=== PATIENT | male | born 1970 | race African-American/Black ===

== ENCOUNTER 2019-07-06 09:47 | Emergency (ER) | payer MEDICAID ==
[~2019-07-06] VITALS: Ht 180.3 cm; Wt 86.0 kg
[2019-07-06 11:06] LABS: BASOPHILS % 0.9 % (0.0-2.0); CHLORIDE 110 mEq/L (98-107); EOSINOPHILS % 0.3 % (0.0-5.0); HEMATOCRIT. 44.7 % (42.0-52.0); HEMOGLOBIN. 15.7 g/dL (14.0-18.0); LYMPHOCYTES % 20.4 % (20.0-50.0); MEAN CORPUSCULAR HEMOGLOBIN 30.1 pg (28.0-32.0); MEAN CORPUSCULAR VOLUME 85.8 fL (80.0-94.0); MEAN PLATELET VOLUME 8.7 fl (7.4-10.4); MONOCYTES % 7.4 % (2.0-8.0); PLATELET 270 x1000/uL (130-400); RED BLOOD CELL COUNT 5.21 mill/uL (4.7-6.1); RED CELL DISTRIBUTION WIDTH 13.7 % (11.6-14.6)
[2019-07-06 12:55] VITALS: BP 155/101
== END 2019-07-06 12:55 | disposition home or self-care (01) ==
LOC: ER 09:47
DX: R53.1 Weakness (principal); I10 Essential (primary) hypertension
CPT/HCPCS: 36415; 71045; 80053; 85025; 99284

== ENCOUNTER 2021-01-19 21:58 | Emergency (ER) | payer MEDICAID ==
[~2021-01-19] VITALS: Ht 172.7 cm; Wt 82.0 kg
[~2021-01-19 21:58] MED LIST: ACET650T37 MT; HYDR-4001 MT; LORA-249 MT; PANT40TA51 MT
[2021-01-19 22:07] VITALS: BP 130/86
[2021-01-20] MEDS ORDERED: VISCOUS LIDOCAINE 2% 15 ML UDC PO STA (02:11)
[2021-01-20] MEDS ORDERED: MAGNESIUM/ALUMINUM HYDROXIDE/SIMETHICONE 30ML UDC PO STA (02:11)
[2021-01-20 03:08] LABS: CLARITY URINE CLOUDY (CLEAR); COLOR URINE DARK YELLOW (YELLOW); KETONES URINE TRACE (NEGATIVE); LEUKOCYTE ESTERASE URINE TRACE (NEGATIVE); NITRITE URINE NEGATIVE (NEGATIVE); OCCULT BLOOD URINE TRACE (NEGATIVE); PH URINE 5.5 (4.5-8.0); PROTEIN URINE 3+ (NEGATIVE); SPECIFIC GRAVITY URINE 1.027 (1.005-1.030)
[2021-01-20 03:17] LABS: *AMPHETAMINES SCREEN URINE NEGATIVE (NEGATIVE); *BARBITURATES SCREEN URINE NEGATIVE (NEGATIVE); *BENZODIAZEPINES SCREEN URINE PRESUMTIVE POSITIVE (NEGATIVE); *COCAINE SCREEN URINE NEGATIVE (NEGATIVE); METHADONE URINE SCREEN NEGATIVE (NEGATIVE); OPIATES URINE SCREEN NEGATIVE (NEGATIVE)
[2021-01-20 03:18] LABS: CANNABINOID URINE SCREEN PRESUMTIVE POSITIVE (NEGATIVE)
[2021-01-20 03:20] LABS: PHENCYCLIDINE URINE SCREEN NEGATIVE (NEGATIVE)
[2021-01-20 03:29] LABS: BASOPHILS % 1.3 % (0.0-2.0); EOSINOPHILS % 0.9 % (0.0-5.0); HEMATOCRIT. 27.7 % (42.0-52.0); MEAN CORPUSCULAR HEMOGLOBIN 26.7 pg (28.0-32.0); MEAN CORPUSCULAR VOLUME 81.6 fL (80.0-94.0); MONOCYTES % 11.2 % (2.0-8.0); NEUTROPHILS % 73.6 % (40.0-76.0); PLATELET 226 x1000/uL (130-400); RED BLOOD CELL COUNT 3.39 mill/uL (4.7-6.1)
[2021-01-20 03:34] LABS: CHLORIDE 112 mEq/L (98-107)
[2021-01-20 03:41] LABS: ETHANOL BLOOD < 10 mg/dL
[2021-01-20] MEDS ORDERED: HALOPERIDOL LACTATE 5MG/ML VIAL IM NR (04:00)
== END 2021-01-20 04:11 | disposition home or self-care (01) ==
LOC: ER 21:58
DX: R10.9 Unspecified abdominal pain (principal); F12.90 Cannabis use, unspecified, uncomplicated; Z88.0 Allergy status to penicillin; Z79.899 Other long term (current) drug therapy
CPT/HCPCS: 36415; 80053; 80305; 80320; 81003; 85025; 99283; G0480

== ENCOUNTER 2021-01-20 04:42 | Emergency (ER) | payer MEDICAID ==
[~2021-01-20] VITALS: Ht 185.4 cm; Wt 87.0 kg
[2021-01-20 04:55] VITALS: BP 161/101
== END 2021-01-20 05:16 | disposition home or self-care (01) ==
LOC: ER 04:42
DX: R10.9 Unspecified abdominal pain (principal); F12.10 Cannabis abuse, uncomplicated; Z79.899 Other long term (current) drug therapy; Z88.0 Allergy status to penicillin
CPT/HCPCS: 99281